=== PATIENT | female | born 1940 | race Caucasian/White ===

== ENCOUNTER → 2018-02-28 | Outpatient (CLI) | payer OTHER | LOC: FIMAGING 15:45 | PROVIDERS: ATTEND Family Medicine | DX: M25.551 Pain in right hip (principal); M17.11 Unilateral primary osteoarthritis, right knee ==

== ENCOUNTER 2018-07-16 12:53 | Emergency (ER) | payer OTHER | END 2018-07-16 14:23 | disposition home or self-care (01) ==